=== PATIENT | female | born 1985 | race Caucasian/White ===

== ENCOUNTER → 2025-08-08 13:26 | Outpatient (REF) | payer OTHER, SELFPAY | LOC: PNTC 13:26 | PROVIDERS: ATTENDING PHYSICIAN Obstetrics & Gynecology | DX: Z36.0 Encounter for antenatal screening for chromosomal anomalies (principal); Z36.82 Encounter for antenatal screening for nuchal translucency; Z3A.12 12 weeks gestation of pregnancy; O99.281 Endocrine, nutritional and metabolic diseases complicating pregnancy, first trimester; E03.9 Hypothyroidism, unspecified; O09.811 Supervision of pregnancy resulting from assisted reproductive technology, first trimester | CPT/HCPCS: 76801; 76813 ==

== ENCOUNTER → 2025-09-04 07:08 | Outpatient (REF) | payer OTHER, SELFPAY | LOC: PNTC 07:08 | PROVIDERS: ATTENDING PHYSICIAN Obstetrics & Gynecology | DX: O99.212 Obesity complicating pregnancy, second trimester (principal); O09.522 Supervision of elderly multigravida, second trimester; O09.812 Supervision of pregnancy resulting from assisted reproductive technology, second trimester; E66.01 Morbid (severe) obesity due to excess calories | CPT/HCPCS: 76805 ==

== ENCOUNTER 2025-10-07 19:25 | Emergency (ER) | payer SELFPAY ==
[2025-10-07] VITALS (12 sets, daily range): BP systolic 136–217; BP diastolic 82–126; BMI 38.4
[2025-10-07 20:32] LABS: Blood Urea Nitrogen 9 mg/dl (7-17); Calcium 9.6 mg/dl (8.4-10.2); Carbon Dioxide 19 mmol/L (22-30); Chloride 106 mmol/L (98-107); Estimated Creatinine Clearance > 125 ml/min; Glucose 134 mg/dl (70-99); Potassium 3.9 mmol/L (3.5-5.1); Sodium 130 mmol/L (135-145); eGFR > 60.00
[2025-10-07 22:48] LABS: Hematocrit 37.1 % (37.0-47.0); Hemoglobin 12.6 g/dL (12.0-16.0); Mean Corp Hgb Conc. 34.0 g/dL (33.0-37.0); Mean Corpuscular Volume 81.9 fL (81.0-99.0); Nucleated Red Blood Cells % 0 %; Platelet Count 297 10^3/uL (130-400); Red Cell Dist. Width 13.3 % (11.5-14.5)
[2025-10-07 23:16] LABS: ALT (SGPT) 19 U/L (0-35); AST (SGOT) 21 U/L (14-36); Albumin 3.5 g/dl (3.5-5.0); Alkaline Phosphatase 81 U/L (38-126); Total Protein 6.7 g/dl (6.3-8.2)
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
[2025-10-08 00:08] VITALS: BP 147/87
[2025-10-08 01:32] VITALS: BP 157/89
[2025-10-08 02:03] VITALS: BP 161/86
== END 2025-10-08 02:41 | disposition home or self-care (01) ==
LOC: EMR 19:25
PROVIDERS: Emergency Medicine; EMERGENCY PHYSICIAN Emergency Medicine; FAMILY PHYSICIAN Family Medicine
DX: O16.2 Unspecified maternal hypertension, second trimester (principal); O9A.212 Injury, poisoning and certain other consequences of external causes complicating pregnancy, second trimester; R51.9 Headache, unspecified; V49.50XA Passenger injured in collision with unspecified motor vehicles in traffic accident, initial encounter; O99.282 Endocrine, nutritional and metabolic diseases complicating pregnancy, second trimester; E03.9 Hypothyroidism, unspecified; O99.892 Other specified diseases and conditions complicating childbirth; E88.819 Insulin resistance, unspecified; Z3A.21 21 weeks gestation of pregnancy
CPT/HCPCS: 99284; 76815; 80053; 82248; 82570; 84156; 84702; 85025; 86850; 86900; 86901; 93005

== ENCOUNTER → 2025-10-10 06:52 | Outpatient (REF) | payer OTHER, SELFPAY | LOC: PNTC 06:52 | PROVIDERS: ATTENDING PHYSICIAN Obstetrics & Gynecology | DX: O99.212 Obesity complicating pregnancy, second trimester (principal); E66.01 Morbid (severe) obesity due to excess calories; O09.522 Supervision of elderly multigravida, second trimester; O09.812 Supervision of pregnancy resulting from assisted reproductive technology, second trimester; Z36.3 Encounter for antenatal screening for malformations; Z36.86 Encounter for antenatal screening for cervical length; O99.282 Endocrine, nutritional and metabolic diseases complicating pregnancy, second trimester; O99.891 Other specified diseases and conditions complicating pregnancy; E28.2 Polycystic ovarian syndrome | CPT/HCPCS: 76811; 76817 ==

== ENCOUNTER → 2025-11-08 06:54 | Outpatient (REF) | payer OTHER, SELFPAY | LOC: PNTC 06:54 | PROVIDERS: ATTENDING PHYSICIAN Student in an Organized Health Care Education/Training Program | DX: O99.212 Obesity complicating pregnancy, second trimester (principal); E66.01 Morbid (severe) obesity due to excess calories; O09.522 Supervision of elderly multigravida, second trimester; O09.812 Supervision of pregnancy resulting from assisted reproductive technology, second trimester; O99.282 Endocrine, nutritional and metabolic diseases complicating pregnancy, second trimester; O99.891 Other specified diseases and conditions complicating pregnancy; E28.2 Polycystic ovarian syndrome; O09.92 Supervision of high risk pregnancy, unspecified, second trimester | CPT/HCPCS: 76816 ==